=== PATIENT | male | born 1945 | race Caucasian/White ===

== ENCOUNTER → 2017-06-25 | Outpatient (CLI) | payer MEDICARE ==
[~2017-06-25] MED LIST: ASPI-1197 PO; ATOR40TA69 PO; CARV12.511 PO; CLOP75TA32 PO; FINA5TAB41 PO; FURO40TA5 PO; ISOS10TA8 PO; OMEP20CA10 PO; SERT100T12 PO; TERA2CAP4 PO; WARF-67 PO
== END | disposition home or self-care (01) ==
LOC: RAH 11:16
PROVIDERS: ATTEND Physician Assistant Medical
DX: R05 Cough (principal); Z95.0 Presence of cardiac pacemaker
CPT/HCPCS: 71046